=== PATIENT | male | born 2005 | race Caucasian/White ===

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

== ENCOUNTER → 2025-03-04 13:36 | Outpatient (BNVA) | payer MEDICAID, SELFPAY | PROVIDERS: Family Provider Nurse Practitioner Family; PCP Nurse Practitioner Family; Visit Provider Psychiatry & Neurology Neurology | DX: E56.9 Vitamin deficiency, unspecified (principal) | CPT/HCPCS: 36415; 82306 ==